=== PATIENT | male | born 1995 | race Caucasian/White ===

== ENCOUNTER 2016-12-14 11:30 | Emergency (ER) | payer SELFPAY ==
[2016-12-14 11:46] VITALS: TEMP 97.5
--- NOTE | 2016-12-14 12:52 | EDPHY ---
H & P Time Seen by Provider: 12/14/16 12:20 HPI/ROS: CHIEF COMPLAINT: Chronic neck pain HISTORY OF PRESENT ILLNESS: 21-year-old male presents to the emergency department complaining of neck pain. The patient states that he has had chronic neck pain for as long as I can remember. Patient states since was a kid, over 10 years ago, he has had pain in his neck especially with certain range of motion and certain movements. The patient was at work a few days ago and was lifting something heavy and felt pain in his neck. He denies any radicular symptoms or numbness or tingling or feelings of pain in his upper extremities. Denies weakness in his upper extremities. He denies chest pain or difficulty breathing. Has no associated headache with this currently. He has never seen a doctor for his neck pain. He has never had any imaging studies. The patient would like to go see a chiropractor, however the chiropractor recommended that he obtain x-rays 1st. REVIEW OF SYSTEMS: Constitutional: No fever, no chills. Eyes: No double or blurry vision. ENT: No sore throat. Respiratory: No cough, no shortness of breath. Cardiac: No chest pain. Gastrointestinal: No abdominal pain, vomiting or diarrhea. Genitourinary: No dysuria. Musculoskeletal: Neck pain as above. No back pain. Skin: No rashes. Neurological: No headache. Past Medical/Surgical History: Negative Social History: Single Smoking Status: Current every day smoker Physical Exam: General Appearance: Alert, no distress. 147/86, 96% on room air. Eyes: Pupils equal and round. Extraocular motions are all intact. ENT: Mouth: Mucous membranes moist. Respiratory: No wheezing, rhonchi, or rales, lungs are clear to auscultation. Cardiovascular: Regular rate and rhythm. Gastrointestinal: Abdomen is soft and nontender, no masses, no rebound or guarding, bowel sounds normal. Neurological: Alert and oriented x 3, cranial nerves II through XII grossly intact Skin: Warm and dry, no rashes. Musculoskeletal: Nontender to palpate along the cervical, thoracic or lumbar spine. Neck is supple. Extremities: Full range of motion and no peripheral edema. Radial, median, and ulnar nerves are all intact for the upper extremities bilaterally. Normal and equal strength for the upper extremities bilaterally. Reflexes are 2+ and equal for the upper extremities bilaterally. Strong radial pulse at both the left and the right wrist. Psychiatric: Patient is oriented X 3, there is no agitation. Constitutional: Initial Vital Signs Temperature (C) 36.4 C 12/14/16 11:44 Heart Rate 65 12/14/16 11:44 Respiratory Rate 17 12/14/16 11:44 Blood Pressure 147/86 H 12/14/16 11:44 O2 Sat (%) 96 12/14/16 11:44 O2 Delivery Mode Room Air Allergies/Adverse Reactions: No Known Allergies Allergy (Verified 12/14/16 11:43) Home Medications: Medication Instructions Recorded NK [No Known Home Meds] 11/13/14 Medical Decision Making - Diagnostics Imaging: Cervical spine x-rays are negative for fracture. This is reviewed by myself the PAC system as well as by the radiologist. ED Course/Re-evaluation: 21-year-old male presents with chronic neck pain. X-rays reveal no fractures. I encouraged close follow-up with primary care provider. Patient has no focal findings on neurologic examination. I do not think an MRI is indicated. Patient does have pain with certain range of motions. He has no focal neurologic findings. He is comfortable being discharged home. He was given a copy of his x-rays as well as dictated report from the radiologist. Differential Diagnosis: Including but not limited to muscular spasm, fracture, dislocation, contusion, sprain, dissection, herniated disc Departure - Departure Disposition: Home, Routine, Self-Care Clinical Impression: Chronic neck pain Condition: Good Instructions: Neck Pain (ED) Additional Instructions: Ibuprofen 400 to 600 mg every 8 hours as needed for pain. Activity as tolerated. Follow up with primary care provider regarding her ongoing chronic neck pain. Try to avoid heavy lifting as to not aggravate the pain in your neck. Return if he developed increasing pain, numbness or tingling in her fingers, feelings of weakness in her arms, or if you feel worse in any way. Referrals: [facility] [Outside] - As per Instructions
--- NOTE | 2016-12-14 13:34 | DX ---
Cervical Spine, AP, Lateral, and Odontoid Views December 14, 2016 at 12:28 p.m. Clinical History: 21-year-old male with chronic neck pain, stiffness, and no specific antecedent odette ma. Comparison Study: None. Findings: There is slight reversal of the normal cervical lordosis and trace cervical dextroscoliosis , features suggestive of underlying muscle spasm. The vertebral body heights, alignments, and disk sp aces are preserved. The predental space is normal. The prevertebral soft tissue thickness is normal. There is no facet malalignment. The interspinous distances are appropriate. The cervicothoracic align ment is maintained. The lateral masses of C1 and C2 are aligned, and the base of the dens is unremark able. Incidental note is made of an azygos lobe fissure. A metallic left-sided piercing is present, p rojected over the left mandible on the odontoid view. Impression: Secondary features suggestive of underlying muscle spasm. If there is further clinical concern regarding the patient's cervicalgia, CT or MR imaging could be c onsidered.
[2016-12-14 14:03] VITALS: BP 129/88; PULSE 49; RESP 18; O2SAT 95
== END 2016-12-14 14:09 | disposition home or self-care (01) ==
DX: M54.2 Cervicalgia (principal); G89.29 Other chronic pain; F17.200 Nicotine dependence, unspecified, uncomplicated

== ENCOUNTER 2017-09-03 18:54 | Emergency (ER) | payer SELFPAY ==
[2017-09-03 19:01] VITALS: RESP 16; TEMP 98.1; O2SAT 97
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
[2017-09-03 20:19] VITALS: BP 121/75; PULSE 78
== END 2017-09-03 20:20 | disposition home or self-care (01) ==
DX: S06.0X1A Concussion with loss of consciousness of 30 minutes or less, initial encounter (principal); F17.200 Nicotine dependence, unspecified, uncomplicated; V00.838A Other accident with motorized mobility scooter, initial encounter; Y92.410 Unspecified street and highway as the place of occurrence of the external cause; Y93.89 Activity, other specified